=== PATIENT | female | born 1970 | race African-American/Black ===

== ENCOUNTER → 2016-07-17 | Outpatient (CLI) | payer BC ==
[~2016-07-17] MED LIST: ACET650T50 PO; INSUINJ49 SC; RANI75TA PO; TAM150SU PO
== END | disposition home or self-care (01) ==
LOC: US 10:39
DX: E04.1 Nontoxic single thyroid nodule (principal)
CPT/HCPCS: 76942

== ENCOUNTER → 2016-08-23 | Outpatient (CLI) | payer BC | END | disposition home or self-care (01) | LOC: OP 11:50 | PROVIDERS: ATTEND Psychiatry & Neurology Neurology | DX: G40.909 Epilepsy, unspecified, not intractable, without status epilepticus (principal) | CPT/HCPCS: 95819 ==

== ENCOUNTER → 2016-10-17 | Outpatient (CLI) | payer BC ==
[2016-10-18 10:45] LABS: Basophils # (auto) 0 uL; Basophils % (auto) 0.4 % (0.0-2.0); Eosinophils # (auto) 0 uL; Eosinophils % (auto) 0.6 % (0.0-7.0); Hematocrit 41.1 % (36.0-46.0); Hemoglobin 13.6 g/dL (12.2-16.2); Lymphocytes % (auto) 33.1 % (10.0-50.0); Mean Corpuscular Hemoglobin 29.9 pg (28.0-32.0); Mean Corpuscular Hgb Conc. 33.2 g/dL (32.0-36.0); Mean Corpuscular Volume 90.1 fL (80.0-100.0); Mean Platelet Volume 7.7 fL (7.4-10.4); Monocytes # (auto) 0.3 uL; Monocytes % (auto) 4.9 % (0.0-12.0); Neutrophils # (auto) 3.8 uL; Platelet Count (auto) 331 10^3/uL (140-450); Red Cell Distribution Width 12.5 % (11.6-16.0); White Blood Cell 6.2 10^3/uL (4.4-10.8)
[2016-10-18 11:12] LABS: Albumin 3.7 g/dL (3.4-5.0); BUN/Creatinine Ratio 13.3; Bilirubin, Total 0.4 mg/dL (0.2-1.0); Calcium 8.9 mg/dL (8.5-10.1); Potassium 3.8 mmol/L (3.5-5.1); Total Protein 7.5 g/dL (6.4-8.2)
== END | disposition home or self-care (01) ==
LOC: LAB 10:39
DX: M06.9 Rheumatoid arthritis, unspecified (principal); M25.50 Pain in unspecified joint; D64.9 Anemia, unspecified; I10 Essential (primary) hypertension
CPT/HCPCS: 36415; 80053; 85025; 85652; 86141

== ENCOUNTER 2019-04-02 19:54 | Emergency (ER) | payer BC ==
[~2019-04-02] VITALS: Ht 172.7 cm; Wt 92.1 kg
[2019-04-02 20:30] VITALS: BP 152/89
[2019-04-02 21:00] LABS: Basophils # (auto) 0.1 uL; Basophils % (auto) 0.5 % (0.0-2.0); Eosinophils # (auto) 0.2 uL; Eosinophils % (auto) 1.3 % (0.0-7.0); Hematocrit 38.2 % (36.0-46.0); Lymphocytes # (auto) 1.5 uL; Lymphocytes % (auto) 10.9 % (10.0-50.0); Mean Corpuscular Hemoglobin 30.5 pg (28.0-32.0); Mean Corpuscular Hgb Conc. 34.1 g/dL (32.0-36.0); Mean Corpuscular Volume 89.7 fL (80.0-100.0); Monocytes # (auto) 0.6 uL; Monocytes % (auto) 4.5 % (0.0-12.0); Neutrophils # (auto) 11.4 uL; Neutrophils % (auto) 82.8 % (37.0-80.0); Platelet Count (auto) 260 10^3/uL (140-450); Red Blood Cells 4.25 10^6/uL (4.0-5.20); Red Cell Distribution Width 13.9 % (11.8-14.3); White Blood Cell 13.7 10^3/uL (4.4-10.8)
[2019-04-02 21:15] LABS: Albumin 3.3 g/dL (3.4-5.0); BUN/Creatinine Ratio 16.2; Calcium 8.6 mg/dL (8.5-10.1); Potassium 3.7 mmol/L (3.5-5.1)
[2019-04-02 21:18] LABS: Bilirubin, Total 0.5 mg/dL (0.2-1.0); Total Protein 7.5 g/dL (6.4-8.2)
== END 2019-04-03 01:17 | disposition left against medical advice (07) ==
LOC: ER 20:01
DX: N64.4 Mastodynia (principal); Z53.21 Procedure and treatment not carried out due to patient leaving prior to being seen by health care provider
CPT/HCPCS: 36415; 80053; 83605; 85025; 87040

== ENCOUNTER 2019-06-23 22:42 | Emergency (ER) | payer BC ==
[~2019-06-23] VITALS: Ht 175.3 cm; Wt 86.2 kg
[2019-06-23] MEDS ORDERED: ASPirin 81 mg TAB PO ONE (23:15)
[2019-06-23] MEDS ORDERED: ONDANSETRON HCL 4 MG/2 ML VIAL IV ONE (23:30)
[2019-06-23] MEDS ORDERED: NITROGLYCERIN 0.2MG/HR TOPICAL PATCH TD ONE (23:30)
[2019-06-23] MEDS ORDERED: MORPHINE SULFATE 10 MG/ML INJ 1ML SDV IV ONE (23:30)
[2019-06-23 23:37] LABS: Basophils # (auto) 0 uL; Basophils % (auto) 0.4 % (0.0-2.0); Eosinophils # (auto) 0.1 uL; Eosinophils % (auto) 0.7 % (0.0-7.0); Hematocrit 40.4 % (36.0-46.0); Hemoglobin 13.6 g/dL (12.2-16.2); Lymphocytes % (auto) 28.9 % (10.0-50.0); Mean Corpuscular Hemoglobin 30.1 pg (28.0-32.0); Mean Corpuscular Hgb Conc. 33.7 g/dL (32.0-36.0); Mean Corpuscular Volume 89.4 fL (80.0-100.0); Monocytes # (auto) 0.7 uL; Monocytes % (auto) 6.4 % (0.0-12.0); Neutrophils # (auto) 6.6 uL; Neutrophils % (auto) 63.6 % (37.0-80.0); Platelet Count (auto) 320 10^3/uL (140-450); Red Blood Cells 4.52 10^6/uL (4.0-5.20); Red Cell Distribution Width 13.2 % (11.8-14.3); White Blood Cell 10.4 10^3/uL (4.4-10.8)
[2019-06-23 23:53] LABS: Alanine Aminotransferase 58 U/L (13-56); Albumin 3.4 g/dL (3.4-5.0); Anion Gap 6 (5-15); Aspartate Aminotransferase 60 U/L (15-37); BUN/Creatinine Ratio 21.7; Blood Urea Nitrogen 18 mg/dL (7-18); Calcium 8.3 mg/dL (8.5-10.1); Carbon Dioxide 27 mmol/L (21-32); Chloride 109 mmol/L (98-107); GFR African American 94 mL/min; GFR Non-African American 78 mL/min; Glucose 78 mg/dL (74-106); INR 0.96 (0.9-1.15); Partial Thromboplastin Time 26.6 sec (23.64-32.05); Potassium 3.8 mmol/L (3.5-5.1); Sodium 142 mmol/L (136-145)
[2019-06-23 23:58] LABS: Alkaline Phosphatase 77 U/L (45-117); Bilirubin, Total 0.2 mg/dL (0.2-1.0); Total Protein 7.2 g/dL (6.4-8.2)
[2019-06-24 04:07] VITALS: BP 109/59
== END 2019-06-24 05:17 | disposition home or self-care (01) ==
LOC: EDBD 22:42 → ER 22:47
DX: R07.89 Other chest pain (principal); J45.909 Unspecified asthma, uncomplicated; M19.90 Unspecified osteoarthritis, unspecified site; Z88.1 Allergy status to other antibiotic agents; Z91.041 Radiographic dye allergy status; Z90.49 Acquired absence of other specified parts of digestive tract
CPT/HCPCS: 36415; 71045; 80053; 83880; 84484; 85025; 85610; 85730; 93005; 96374; 96375; 99284; J2270; J2405

== ENCOUNTER 2019-09-27 13:42 | Emergency (ER) | payer BC ==
[~2019-09-27] VITALS: Ht 172.7 cm; Wt 87.5 kg
[2019-09-27 15:01] LABS: Basophils # (auto) 0.1 10 ^3/uL (0-0.2); Basophils % (auto) 0.6 % (0.0-2.0); Eosinophils # (auto) 0 10 ^3/uL (0-0.8); Eosinophils % (auto) 0.3 % (0.0-7.0); Hematocrit 41.7 % (36.0-46.0); Hemoglobin 14.8 g/dL (12.2-16.2); Lymphocytes # (auto) 2.4 10 ^3/uL (0.4-5.4); Lymphocytes % (auto) 25.9 % (10.0-50.0); Mean Corpuscular Hgb Conc. 35.6 g/dL (32.0-36.0); Mean Corpuscular Volume 87.2 fL (80.0-100.0); Monocytes # (auto) 0.5 10 ^3/uL (0-1.3); Monocytes % (auto) 5.2 % (0.0-12.0); Neutrophils # (auto) 6.2 10 ^3/uL (1.6-8.6); Platelet Count (auto) 325 10^3/uL (140-450); Red Blood Cells 4.79 10^6/uL (4.0-5.20); Red Cell Distribution Width 12.5 % (11.8-14.3); White Blood Cell 9.2 10^3/uL (4.4-10.8)
[2019-09-27 15:17] LABS: Albumin 3.7 g/dL (3.4-5.0); BUN/Creatinine Ratio 20.9; Calcium 8.7 mg/dL (8.5-10.1); Magnesium 2.1 mg/dL (1.6-2.6); Potassium 3.6 mmol/L (3.5-5.1)
[2019-09-27 15:20] LABS: Bilirubin, Total 0.4 mg/dL (0.2-1.0); Total Protein 7.4 g/dL (6.4-8.2)
[2019-09-27] MEDS ORDERED: IPRATROPIUM BROM 0.5 MG/2.5ML INH SOL HHN ONE (15:30)
[2019-09-27] MEDS ORDERED: ALBUTEROL SULF 2.5 MG/0.5ML(0.5%) NEB SOLN HHN ONE (15:30)
[2019-09-27 16:00] LABS: Urine Bacteria FEW /hpf (None Seen); Urine Blood Negative /uL (Negative); Urine Specific Gravity 1.007 (1.001-1.035); Urine WBC 2 /hpf (0 - 5)
[2019-09-27] MEDS ORDERED: methylPREDNISolone SOD SUCC 125 MG/2 ML VL IV ONE (17:00)
[2019-09-27 18:00] VITALS: BP 145/76
== END 2019-09-27 18:57 | disposition home or self-care (01) ==
LOC: ER 13:42
DX: J45.901 Unspecified asthma with (acute) exacerbation (principal); J20.9 Acute bronchitis, unspecified; M06.9 Rheumatoid arthritis, unspecified; E11.9 Type 2 diabetes mellitus without complications; Z86.73 Personal history of transient ischemic attack (TIA), and cerebral infarction without residual deficits; Z90.49 Acquired absence of other specified parts of digestive tract
CPT/HCPCS: 36415; 71045; 80053; 81001; 81025; 83605; 83735; 84443; 85025; 87040; 87070; 87804; 87880; 93005; 94640; 96374; 99285; J2930; J7644

== ENCOUNTER 2021-10-15 10:25 | Emergency (ER) | payer BC ==
[~2021-10-15] VITALS: Ht 172.7 cm; Wt 87.5 kg
[2021-10-15] MEDS ORDERED: diphenhdrAMINE HCL 50 MG/1 ML VL IV ONE (11:00)
[2021-10-15] MEDS ORDERED: SODIUM CHLORIDE 0.9% 500 ML IV ONE (11:00)
[2021-10-15 11:25] VITALS: BP 140/78
[2021-10-15 11:30] LABS: Basophils # (auto) 0.1 10 ^3/uL (0-0.2); Basophils % (auto) 0.9 % (0.0-2.0); Eosinophils # (auto) 0 10 ^3/uL (0-0.8); Eosinophils % (auto) 0.5 % (0.0-7.0); Hematocrit 41.1 % (36.0-46.0); Hemoglobin 14.3 g/dL (12.2-16.2); Lymphocytes # (auto) 1.3 10 ^3/uL (0.4-5.4); Mean Corpuscular Hemoglobin 29.7 pg (28.0-32.0); Mean Corpuscular Hgb Conc. 34.8 g/dL (32.0-36.0); Mean Corpuscular Volume 85.1 fL (80.0-100.0); Monocytes # (auto) 0.6 10 ^3/uL (0-1.3); Monocytes % (auto) 7.6 % (0.0-12.0); Nucleated Red Blood Cells % 0.2 %; Red Blood Cells 4.82 10^6/uL (4.0-5.20); Red Cell Distribution Width 13.2 % (11.8-14.3)
[2021-10-15 11:37] LABS: Urine Bacteria NONE SEEN /hpf (None Seen); Urine Blood Negative /uL (Negative); Urine Budding Yeast OCCASIONAL /hpf (None Seen); Urine Mucus FEW (None Seen); Urine Specific Gravity 1.019 (1.001-1.035); Urine WBC 1 /hpf (0 - 5)
[2021-10-15 11:44] LABS: Albumin 3.5 g/dL (3.4-5.0); Calcium 8.8 mg/dL (8.5-10.1); Potassium 4.1 mmol/L (3.5-5.1)
[2021-10-15 11:48] LABS: BUN/Creatinine Ratio 13.6; Bilirubin, Total 0.6 mg/dL (0.2-1.0); Total Protein 7.4 g/dL (6.4-8.2)
[2021-10-15] MEDS ORDERED: METH4PAK PO (12:34)
[2021-10-15] MEDS ORDERED: DIPH25CA66 PO (12:35)
== END 2021-10-15 13:13 | disposition home or self-care (01) ==
LOC: ER 10:25
DX: R53.1 Weakness (principal); J45.909 Unspecified asthma, uncomplicated; I25.10 Atherosclerotic heart disease of native coronary artery without angina pectoris; E11.9 Type 2 diabetes mellitus without complications; E03.9 Hypothyroidism, unspecified; Z90.49 Acquired absence of other specified parts of digestive tract; Z79.4 Long term (current) use of insulin; Z79.899 Other long term (current) drug therapy; Z88.1 Allergy status to other antibiotic agents; Z88.8 Allergy status to other drugs, medicaments and biological substances
CPT/HCPCS: 36415; 80053; 81001; 84484; 85025; 93005; 96374; 99284; J1200

== ENCOUNTER 2023-08-17 14:15 | Emergency (ER) | payer BC ==
[~2023-08-17] VITALS: Ht 172.7 cm; Wt 89.5 kg
[~2023-08-17 14:15] MED LIST changes: +DIPH25CA66 PO; +METH4PAK PO
[2023-08-17 14:28] VITALS: BP 138/85; PULSE 85; RESP 20; O2SAT 99
== END 2023-08-17 15:26 | disposition left against medical advice (07) ==
LOC: EDBD 14:15 → ER 14:15
DX: R10.9 Unspecified abdominal pain (principal); Z53.21 Procedure and treatment not carried out due to patient leaving prior to being seen by health care provider